=== PATIENT | female | born 2005 | race Caucasian/White ===

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

== ENCOUNTER 2024-11-22 07:46 | Outpatient (CLI) | payer BC | END 2024-11-22 07:47 | disposition home or self-care (01) | LOC: CSHULT 07:46 | DX: N63.11 Unspecified lump in the right breast, upper outer quadrant (principal); N63.21 Unspecified lump in the left breast, upper outer quadrant ==